=== PATIENT | female | born 1970 | race Native Hawaiian/Other Pacific Islander ===

== ENCOUNTER 2016-10-11 08:46 | Emergency (ER) | payer OTHER ==
[~2016-10-11] VITALS: Ht 165.1 cm; Wt 56.7 kg
[2016-10-11 08:52] VITALS: BP 124/60
--- NOTE | 2016-10-11 09:30 | NUR ---
PT TAKEN TO CT VIA WHEELCHAIR
[2016-10-11] MEDS ORDERED: IBUPROFEN 400 MG TABLET ONE (09:54)
[2016-10-11] MEDS ORDERED: IBUPROFEN 400 MG TABLET PO ONE (10:00)
--- NOTE | 2016-10-11 10:01 | NUR ---
URINE SAMPLE COLLECTED SENT TO LAB
== END 2016-10-11 10:43 | disposition home or self-care (01) ==
LOC: ER 08:49
DX: M54.12 Radiculopathy, cervical region (principal); Z91.018 Allergy to other foods; V43.52XA Car driver injured in collision with other type car in traffic accident, initial encounter; Y93.89 Activity, other specified; Y92.413 State road as the place of occurrence of the external cause; Y99.8 Other external cause status
CPT/HCPCS: 72125; 73090; 84703; 99284; A4606; Z7610